=== PATIENT | male | born 1990 | race Caucasian/White ===

== ENCOUNTER 2019-03-23 14:30 | Emergency (ER) | payer OTHER ==
[~2019-03-23] VITALS: Ht 175.3 cm; Wt 48.9 kg
--- NOTE | 2019-03-23 16:26 | NUR ---
SPOKE TO NURSE JOSE DAVID RN ABT PT SHE TRIAGE THE PT PER HER PA BURN WANT CHEST X RAY ON PT NO EKG OR NAYTHING PA ALREADY AWARE OF PT CONDITION.
[2019-03-23] MEDS ORDERED: ALBU8HFA PO (16:47)
--- NOTE | 2019-03-23 17:00 | NUR ---
notified pa manriquez that pt bp 104/63 and hr 46-48 as per pa give pt 1l of oral fluid,given to the pt.
--- NOTE | 2019-03-23 17:50 | NUR ---
pt vitals checked hr 56 pt finished 500ml ,notified angella manriquez order to encourage pt to finish rest of 500ml of water.informed that pt already encourage will recheck pt vitals.pt look better after drinking water.
--- NOTE | 2019-03-23 17:51 | NUR ---
pt has just finished 500ml of water ,encouraged to drink more ,pt cooperative,hr 56 rgt now.will notify angella manriquez.
[2019-03-23 18:24] VITALS: BP 123/76
== END 2019-03-23 18:27 | disposition home or self-care (01) ==
LOC: ER 14:31
DX: R06.00 Dyspnea, unspecified (principal); F10.99 Alcohol use, unspecified with unspecified alcohol-induced disorder; F17.200 Nicotine dependence, unspecified, uncomplicated; Z59.0 Homelessness; Z88.6 Allergy status to analgesic agent; Z79.899 Other long term (current) drug therapy; Y90.9 Presence of alcohol in blood, level not specified
CPT/HCPCS: 71045; 93005; 99283